=== PATIENT | female | born 1970 | race Caucasian/White ===

== ENCOUNTER 2016-11-18 19:30 | Emergency (ER) | payer OTHER | END 2016-11-18 22:29 | disposition left against medical advice (07) | LOC: FER 19:30 | DX: K94.03 Colostomy malfunction (principal); R21 Rash and other nonspecific skin eruption; Z93.3 Colostomy status; Z90.49 Acquired absence of other specified parts of digestive tract; Z85.038 Personal history of other malignant neoplasm of large intestine | CPT/HCPCS: 99282 ==